=== PATIENT | female | born 1995 | race Caucasian/White ===

== ENCOUNTER 2018-02-25 08:05 | Observation (INO) | payer OTHER ==
[~2018-02-25] VITALS: Ht 167.6 cm; Wt 83.9 kg
[~2018-02-25 08:05] MED LIST: ACE3 PO; ACET-3017 PO; ALB18R INH; ALB6.7R INH; AMO400L PO; AMOX500T10 PO; HYDEL PO; HYDR-3072 PO; HYDR-385 PO; HYDR25VI IM; IBUP800T37 PO; IMPLANON IM; LOR5/325 PO; MYLL PO; NIFE20CA8 PO; NITR-105 PO; NORG1TAB74 PO; ONDA4TAB PO; PANT40TA13 PO; PRE20 PO; PREN-123 PO; PREN-127 PO; PROM-110 PO; PROM25S PR; RAN150 PO; RANI-366 PO; SERT-1 PO; SERT-173; SERT-182 PO; SUC1; SULF-120 PO; TRAZ-133 PO; [UNRECOGNIZED DRUG - CODE]; [UNRECOGNIZED DRUG - CODE] PO; [UNRECOGNIZED DRUG - OTHER] PO
[2018-02-25] MEDS ORDERED: LR(*) 1000 ML BAG 1,000 ML IV PRN (08:32)
[2018-02-25] MEDS ORDERED: DLR(*) 1000 ML BAG 1,000 ML IV PRN (08:32)
[2018-02-25] MEDS ORDERED: ONDANSETRON 4 MG/2 ML VIAL IVP PRN (08:35)
[2018-02-25] MEDS ORDERED: METOCLOPRAMIDE 10 MG/2 ML SDV IVP PRN (08:35)
[2018-02-25 08:37] VITALS: BP 114/55; Ht 167.6 cm; Wt 83.9 kg
[2018-02-25] MEDS ORDERED: ACET-1966 PO (08:37)
[2018-02-25] MEDS ORDERED: PNV1COMB5 (08:37)
[2018-02-25 09:20] LABS: PLATELET COUNT, AUTOMATED 183 K/uL (150-450)
[2018-02-25] MEDS ORDERED: ONDA4TAB97 PO (12:43)
--- NOTE | 2018-02-25 12:53 | History & Physical ---
History of Present Illness Age of Patient: 23 Chief Complaint nausea History of Present Illness The patient is a 23 year old 3 para 2 admitted at 20 5/7 weeks estimated gestational age with an estimated date of delivery 06/29/18 . Patient is admitted with complaint of nausea vomiting diarrhea. No vaginal bleeding. Good movement and occasional contractions. She was evaluated for active labor. She had an uncomplicated course. Her record was reviewed. History Allergies: Coded Allergies: nicotine (Unverified Allergy, Intermediate, NAUSEA/VOMITING, 09/24/17) Social History: No T/E/D. Med Rec Home Meds Active Scripts Ondansetron Hcl (ZOFRAN) 4 Mg Tablet, 1 TAB PO Q6H Y for NAUSEA/VOMITING, #20 TAB 1 Refill Prov:INDU OLIVARES MD 02/25/18 Reported Medications Acetaminophen (TYLENOL) 325 Mg Tablet, 325 MG PO, TAB 02/25/18 Pnv #116/Iron Fumarate/Fa/Dha (EXPECTA COMBO PACK) 1 Each Combo..pkg 02/25/18 Discontinued Scripts Promethazine Hcl (PROMETHAZINE HCL) 25 Mg Tablet, 25 MG PO Q8H Y for NAUSEA/ VOMITING, #20 TAB 0 Refills Prov:MERLE PORTILLO MD 09/24/17 Review of Systems Constitutional: No Fever, No Weight Loss Neurological: No Syncope, No Confusion Eyes: No Vision Change, No Loss of Vision ENT: No Hearing Loss, No Sinus Congestion Cardiovascular: No Chest Pain, No Palpitations Respiratory: No Shortness of Breath Gastrointestinal: Nausea, Vomiting, Diarrhea, No Melena Genitourinary: No Dysuria, No Hematuria Musculoskeletal: No Pain, No Sprain Psychiatric: No Depression, No Anxiety Exam General Exam Vital Signs Vital Signs Date Time Temp Pulse Resp B/P (MAP) Pulse Ox O2 Delivery O2 Flow Rate FiO2 02/25/18 08:37 98.3 85 16 114/55 (74) 95 Room Air General Apperance: Alert/Awake/No Acute Distress Eyes: Normal Extraocular Movement & Vison ENT: Moist Mucous Membranes Cardiovascular: Regular Rate and Rhythm Respiratory: Clear to Auscultation Abdomen: Gravid - Non-Tender Extremities: Edema Integumentary: Skin Intact without Lesions or Rash Psychological: Alert & Oriented X3, Appropriate Mood & Affect Medical Decision Making Data Points Result Diagram: 02/25/18 0915 Assessment and Plan Problems: (1) Nausea and vomiting in Assessment & Plan: given iv hydration and zofran and symptoms resolved will discharge with zofran Copies to: INDU OLIVARES MD, JOHN MD Feb 25, 2018 12:53
== END 2018-02-25 12:53 | disposition home or self-care (01) ==
LOC: OB 08:05
PROVIDERS: ADMIT Obstetrics & Gynecology; ATTEND Obstetrics & Gynecology
DX: O21.2 Late vomiting of pregnancy (principal); Z3A.20 20 weeks gestation of pregnancy
CPT/HCPCS: 36415; 81001; 85025; G0378; G0379; J2405; J7120

== ENCOUNTER 2018-06-01 19:35 | Outpatient (CLI) | payer OTHER ==
[~2018-06-01] VITALS: Ht 168.3 cm; Wt 86.2 kg
[~2018-06-01 19:35] MED LIST changes: +ACET-1966 PO; +ONDA4TAB97 PO; +PNV1COMB5
[2018-06-01] MEDS ORDERED: LR(*) 1000 ML BAG 1,000 ML IV PRN (19:40)
[2018-06-01 19:56] VITALS: BP 125/64; Ht 168.3 cm; Wt 86.2 kg
[2018-06-01] MEDS ORDERED: FAMO1TAB59 PO (19:56)
[2018-06-01] MEDS ORDERED: ESCI20TA38 PO (19:56)
[2018-06-01] MEDS ORDERED: FAMOTIDINE(*) 20MG/50ML PREMIX 50 ML IVPB ONE (20:15)
[2018-06-01] MEDS ORDERED: ONDANSETRON 4 MG/2 ML VIAL ONE (20:29)
[2018-06-01] MEDS ORDERED: ONDANSETRON 4 MG/2 ML VIAL IVP PRN (20:30)
[2018-06-01] MEDS ORDERED: FAMOTIDINE(*) 20MG/50ML PREMIX 50 ML IVPB PRN (20:30)
[2018-06-01] MEDS: LR(*) 1000 ML BAG 1,000 ML IV PRN ×2 (20:42→22:25)
[2018-06-01] MEDS ORDERED: cefTRIAXone 1 GM VIAL IVP ONE (21:50)
== END 2018-06-01 22:09 | disposition home or self-care (01) ==
LOC: L&D 19:35 → OB 19:35 → UNDOADMOB 19:35 → OB 19:35 → L&D 22:09 → UNDODISOB 22:09 → EDSTATUS 06-02 10:35
PROVIDERS: ATTEND Student in an Organized Health Care Education/Training Program
DX: O47.03 False labor before 37 completed weeks of gestation, third trimester (principal); O36.8130 Decreased fetal movements, third trimester, not applicable or unspecified; Z3A.35 35 weeks gestation of pregnancy
CPT/HCPCS: 81001; 87088; 99213; J0696; J2405; J3490; J7120; G0378; G0379

== ENCOUNTER 2018-06-05 20:31 | Outpatient (CLI) | payer OTHER ==
[~2018-06-05 20:31] MED LIST changes: +ESCI20TA38 PO; +FAMO1TAB59 PO
[2018-06-05 21:20] VITALS: BP_SYST 129; BP_DIAS 60; BP_DIAS 85
[2018-06-05] MEDS ORDERED: LR(*) 1000 ML BAG 1,000 ML IV PRN (21:53)
[2018-06-05] MEDS ORDERED: APAP/HYDROCODONE 325/5 TAB PO ONE (21:55)
[2018-06-06] MEDS ORDERED: NIFEdipine 10 MG CAP PO SCH
== END 2018-06-06 01:42 | disposition home or self-care (01) ==
LOC: UNDOADMIN 20:31 → OB 20:31 → L&D 20:31 → OB 20:31 → UNDODISIN 06-06 01:42 → L&D 06-06 01:42 → EDSTATUS 06-08 15:31
PROVIDERS: ATTEND Obstetrics & Gynecology
DX: O47.03 False labor before 37 completed weeks of gestation, third trimester (principal); Z3A.36 36 weeks gestation of pregnancy
CPT/HCPCS: 59025; 81001; 99213; J7120

== ENCOUNTER 2018-06-08 09:03 | Outpatient (CLI) | payer OTHER ==
[~2018-06-08] VITALS: Ht 168.3 cm; Wt 85.3 kg
[2018-06-08 09:39] VITALS: BP 114/71; BMI 30.1
[2018-06-08] MEDS ORDERED: PROMETHAZINE 25 MG/ML 1 ML AMP IM ONE (10:00)
[2018-06-08] MEDS ORDERED: LR(*) 1000 ML BAG 1,000 ML IV PRN ×2 (10:00→14:00)
[2018-06-08] MEDS ORDERED: MEPERIDINE 50 MG/ML SYR IM ONE (10:00)
[2018-06-08] MEDS ORDERED: LIDOCAINE/SOD BICARB 8.4% SYR ONE (10:03)
[2018-06-08] MEDS ORDERED: fentaNYL CITR 100 MCG/2 ML AMP IM ONE (10:20)
[2018-06-08] MEDS ORDERED: NITR-105 PO (12:10)
[2018-06-12 21:28] VITALS: Ht 168.3 cm; Wt 85.3 kg
== END 2018-06-08 14:32 | disposition home or self-care (01) ==
LOC: L&D 09:03 → OB 09:03 → UNDOADMIN 09:03 → UNDODISIN 14:32 → L&D 14:32 → EDSTATUS 06-20 08:35
PROVIDERS: ATTEND Obstetrics & Gynecology
DX: O47.03 False labor before 37 completed weeks of gestation, third trimester (principal); Z3A.36 36 weeks gestation of pregnancy
CPT/HCPCS: 99213; J2550; J3010; 59025

== ENCOUNTER 2018-06-11 21:46 | Observation (INO) | payer OTHER ==
[~2018-06-11] VITALS: Ht 167.6 cm; Wt 85.3 kg
[2018-06-11] MEDS ORDERED: OXYTOCIN 30 UNIT/D5LR 500 ML 500 ML IV PRN (21:51)
[2018-06-11] MEDS ORDERED: LR(*) 1000 ML BAG 1,000 ML IV SCH (21:51)
[2018-06-11] MEDS ORDERED: FAMOTIDINE(*) 20MG/50ML PREMIX 50 ML IVPB PRN (21:51)
[2018-06-11] MEDS ORDERED: DLR(*) 1000 ML BAG 1,000 ML IV SCH (21:51)
[2018-06-11] MEDS ORDERED: LIDOCAINE 1% LOCAL 300 MG/30ML INJ PRN (21:55)
[2018-06-11] MEDS ORDERED: METOCLOPRAMIDE 10 MG/2 ML SDV IVP PRN (21:55)
[2018-06-11] MEDS ORDERED: cefOXitin/DEX(*) 2GM/50ML PREM 50 ML IVPB PRN (21:55)
[2018-06-11] MEDS ORDERED: fentaNYL CITR 100 MCG/2 ML AMP IVP PRN (21:55)
[2018-06-11] MEDS ORDERED: LIDOCAINE/SOD BICARB 8.4% SYR SC PRN (21:55)
[2018-06-12 02:51] VITALS: BP 122/66; Ht 167.6 cm; Wt 85.3 kg
== END 2018-06-12 02:09 | disposition home or self-care (01) ==
LOC: OB 21:46 → INTOOBSV 21:46
PROVIDERS: ADMIT Student in an Organized Health Care Education/Training Program; ATTEND Student in an Organized Health Care Education/Training Program
DX: O47.1 False labor at or after 37 completed weeks of gestation (principal); Z3A.39 39 weeks gestation of pregnancy
CPT/HCPCS: 59025; G0378; G0379

== ENCOUNTER 2018-06-12 21:11 | Outpatient (CLI) | payer OTHER ==
[~2018-06-12] VITALS: Ht 167.6 cm; Wt 85.3 kg
[2018-06-12] MEDS ORDERED: LR(*) 1000 ML BAG 1,000 ML IV SCH (21:14)
[2018-06-12] MEDS ORDERED: FAMOTIDINE(*) 20MG/50ML PREMIX 50 ML IVPB PRN (21:14)
[2018-06-12] MEDS ORDERED: OXYTOCIN 30 UNIT/D5LR 500 ML 500 ML IV PRN (21:14)
[2018-06-12] MEDS ORDERED: LIDOCAINE 1% LOCAL 300 MG/30ML INJ PRN (21:15)
[2018-06-12] MEDS ORDERED: FLUSH 10 ML SYR IVP PRN (21:15)
[2018-06-12] MEDS ORDERED: LIDOCAINE/SOD BICARB 8.4% SYR SC PRN (21:15)
[2018-06-12] MEDS ORDERED: fentaNYL CITR 100 MCG/2 ML AMP IVP PRN (21:15)
[2018-06-12] MEDS ORDERED: METOCLOPRAMIDE 10 MG/2 ML SDV IVP PRN (21:15)
[2018-06-12 21:28] VITALS: BP 128/58; Ht 167.6 cm; Wt 85.3 kg
[2018-06-12] MEDS ORDERED: ACETAMINOPHEN 500 MG TAB PO ONE (21:55)
[2018-06-12] MEDS ORDERED: APAP/HYDROCODONE 325/5 TAB PO ONE (23:35)
[2018-06-12] MEDS ORDERED: PROMETHAZINE 25 MG/ML 1 ML AMP IM PRN (23:35)
== END 2018-06-13 00:41 | disposition home or self-care (01) ==
LOC: OB 21:11 → L&D 21:11 → OB 21:11 → UNDOADMOB 21:11 → L&D 06-13 00:41 → UNDODISOB 06-13 00:41 → EDSTATUS 06-16 08:39
PROVIDERS: ATTEND Student in an Organized Health Care Education/Training Program
DX: O47.1 False labor at or after 37 completed weeks of gestation (principal); Z3A.38 38 weeks gestation of pregnancy
CPT/HCPCS: 99213; G0378; G0379

== ENCOUNTER 2018-06-17 23:39 | Inpatient (IN) | payer OTHER ==
[~2018-06-17] VITALS: Ht 167.6 cm; Wt 85.3 kg
[2018-06-18 00:30] VITALS: BP 123/72; Ht 167.6 cm; Wt 85.3 kg
[2018-06-18] MEDS ORDERED: FAMOTIDINE(*) 20MG/50ML PREMIX 50 ML IVPB PRN (01:29)
[2018-06-18] MEDS ORDERED: OXYTOCIN 30 UNIT/D5LR 500 ML 500 ML IV PRN ×2 (01:29→07:29)
[2018-06-18] MEDS ORDERED: cefOXitin/DEX(*) 2GM/50ML PREM 50 ML IVPB PRN (01:30)
[2018-06-18] MEDS ORDERED: METOCLOPRAMIDE 10 MG/2 ML SDV IVP PRN (01:30)
[2018-06-18] MEDS ORDERED: LIDOCAINE/SOD BICARB 8.4% SYR SC PRN (01:30)
[2018-06-18] MEDS ORDERED: fentaNYL CITR 100 MCG/2 ML AMP IVP PRN (01:30)
[2018-06-18] MEDS ORDERED: LIDOCAINE 1% LOCAL 300 MG/30ML INJ PRN (01:30)
[2018-06-18] MEDS ORDERED: FLUSH 10 ML SYR IVP PRN (01:30)
[2018-06-18] MEDS: LR(*) 1000 ML BAG 1,000 ML IV SCH ×3 (02:02→21:29)
[2018-06-18 02:07] LABS: PLATELET COUNT, AUTOMATED 152 K/uL (150-450)
[2018-06-18] MEDS ORDERED: ONDANSETRON 4 MG/2 ML VIAL IVP PRN (02:40)
[2018-06-18] MEDS ORDERED: BUPIVACAINE 0.25% MPF INJ EPI PRN (02:40)
[2018-06-18] MEDS ORDERED: BUPIVACAINE 0.5% INJ 30ML VIAL EPI PRN (02:40)
[2018-06-18] MEDS ORDERED: LIDO/EPI 2% MPF 1:200,000 20ML EPI PRN (02:40)
[2018-06-18] MEDS ORDERED: LIDOCAINE/PF 2% 200MG/10ML AMP 200 MG/10 ML AMPUL EPI PRN (02:40)
[2018-06-18] MEDS ORDERED: fentaNYL CITR 100 MCG/2 ML AMP IT PRN (02:40)
[2018-06-18] MEDS ORDERED: FAMOTIDINE 20 MG/50 ML PREMIX IVPB PRN (02:40)
[2018-06-18] MEDS ORDERED: FENTANYL/ROPIVACAINE 100 ML BAG EPI PRN (02:40)
[2018-06-18] MEDS ORDERED: EPIDURAL KEYS XX PRN (02:40)
--- NOTE | 2018-06-18 04:11 | Anesthesia OB Pre-Anes Eval ---
History of Present Illness Anesthesia Start Date: Jun 18, 2018 Anesthesia Start Time: 02:55 OB Anesthesia Diagnosis: spontaneous ROM Complications: None known EDC: Jul 02, 2018 : 3 Para: 2 Pain Ratin Result Diagram: 06/18/18 0145 Height (Inches): 66 Weight (Pounds): 188 BMI Calculated: 30.34 Past Medical History Medical History: no pertinent history Surgical History: tonsillectomy Previous Anesthesia: general, epidural Attended Childbirth Classes?: No Hx Anesthesia Reactions: No Hx Family Anesthesia Reaction: No Home Meds Reported Medications Nitrofurantoin Monohyd/M-Cryst (MACROBID 100 MG CAPSULE) 100 Mg Capsule, 100 MG PO BID, CAPSULE 06/08/18 Escitalopram Oxalate (LEXAPRO) 20 Mg Tablet, 10 MG PO QDAY, TAB 06/01/18 Famotidine/Ca Carb/Mag Hydrox (TUMS DUAL ACTION TABLET CHEW) 1 Each Tab.chew, 1 EACH PO, TAB.CHEW 06/01/18 Acetaminophen (TYLENOL) 325 Mg Tablet, 325 MG PO, TAB 02/25/18 Pnv #116/Iron Fumarate/Fa/Dha (EXPECTA COMBO PACK) 1 Each Combo..pkg 02/25/18 Allergies: Coded Allergies: nicotine (Unverified Allergy, Intermediate, NAUSEA/VOMITING, 09/24/17) Anesthesia OB ROS Neurological: No migraines/headaches, No seizures, No neuropathy Eyes ROS: contacts out Contacts Statement: Patient instructed to notify anesthesia if she places contacts in. States she does not have any here with her. ENT: Denies Tooth caps, Denies Loose teeth, Denies Chipped teeth, Denies Dentures, Denies Bridges, Denies Retainers, Denies Veneers, Denies Implants, Tongue ring (removed and placed in cup), Denies Other Pulmonary: asthma (no problems in last 5 years) Airway Class: ll Cardiovascular ROS: No edema, No arrhythmia GI ROS: clear liquids Last Solids Date: Jun 17, 2018 Last Solids Time: 20:00 ROS: No Herpes, No STD(s), No Liver Disease, No Renal Disease Endocrine ROS: No diabetes, No gestational diabetes, No thyroid disorder Musculoskeletal ROS: No low back pain, No low back injury, No scoliosis ASA Classification: 2 Assessment and Plan Assessment Past Medical, Surgical, Family and Obstetric Histories reviewed. Please see ACOG chart. Reviewed last epidurals in [facility] records. Epidural anesthesia risks, complications and benefits explained to patient's satisfaction for labor and vaginal delivery and/or section. General anesthesia risks and benefits explained to patient's satisfaction. Questions invited, none asked. APOLINAR WESTBROOK CRNA Jun 18, 2018 04:11
--- NOTE | 2018-06-18 04:15 | Procedure Note ---
Anesthetic Placement Note Anesthesia Plan: CSE Permit for Anesthesia Signed: Yes Anesthesia Technique: Patient Sitting Anesthesia Prep: Chlorhexidine Interspace: L 3-4 Local Anesthetic: 1% Lidocaine, 25 Gauge Needle Amount Local - cc's: 2 Anesthesia Needle: 17g Touhy/Schliff Anesthesia Attempts: 1 Loss of Resistance: Air Depth of VINCE (cm): 6 Epidural Needle Placement: No CSF, No Blood, No Parasthesia Intrathecal Needle: 27 Gauge Pencan Cerebral Spinal Fluid: No Catheter Insertion (cm): 10 Catheter Type: Gleason - Spring Wound Epidural Dressing: Tegaderm, Tape, Adhesive [place]dealing Anesthesia Tray: Lot Number ([id number]), Expiration Date (2019-07-16), Reference Number ([id number]) Anesthesia Medications: Epidural Test Dose: 1.5 Lido/Epi (1:200,000), Dose - mL (3), Time (0316), Negative Epidural Loading Dose: 0.2% Ropivicaine, With Fentanyl 2mcg/ml, Dose - ml (8), Time (0321) Epidural Infusion: 0.2% Ropivicaine, With Fentanyl 2mcg/ml, Start Time: (0322) Epidural Pump Setting: Bolus Dose - mL (5), Lockout - Minutes (20), Maintenance Rate - mL/hr (6), Maximum per Hour - mL (21) Complications: None Comment: Pt. became comfortable within 5-7 minutes of dosing epidural. Smile on face. Encouraged to sleep. States she does not feel contractions. APOLINAR WESTBROOK CRNA Jun 18, 2018 04:15
[2018-06-18] MEDS ORDERED: METHYLERGONOVINE MAL 0.2MG/ML ONE ×2 (06:02→06:50)
[2018-06-18] MEDS ORDERED: CARBOPROST TROMETHAM 250MCG/ML IM ONLY ONE (06:02)
[2018-06-18] MEDS ORDERED: DIPHTH/TETANUS/ACEL. PERTUSSIS IM ONE (06:25)
[2018-06-18] MEDS ORDERED: MAGNESIUM HYDROXIDE* 30ML UDCP PO PRN (06:25)
[2018-06-18] MEDS ORDERED: MEASLES,MUMP,RUBELLA VAC 0.5ML SC ONE (06:25)
[2018-06-18] MEDS ORDERED: LANOLIN OINT 7 GM TUBE TP PRN (06:25)
[2018-06-18] MEDS ORDERED: INFLUENZA VIRUS VAC 0.5 ML SYR IM ONLY ONE (06:25)
[2018-06-18] MEDS ORDERED: BENZOCAINE 20% 60 ML BTL TP PRN (06:25)
[2018-06-18] MEDS ORDERED: GLYCERIN/WITCH HAZEL LEAF 1 PK TOP PRN (06:25)
[2018-06-18] MEDS ORDERED: APAP/HYDROCODONE 325/5 TAB PO PRN (06:25)
[2018-06-18] MEDS ORDERED: ACETAMINOPHEN 325 MG TAB PO PRN (06:25)
[2018-06-18] MEDS ORDERED: HYDROCORTISONE 2.5% CR 30GM TB PR PRN (06:25)
--- NOTE | 2018-06-18 06:25 | Anesthesia Progress Note ---
Progress/Maintenance Anesthesia Note Date: Jun 18, 2018 Anesthesia Note Time: 06:15 Pain Intensity: 0 Pump: Off Sensory Level: T-12 Motor Level: Bending Knees-Bilateral Dilatation: 10 Position: Semi-Fowlers Assessment and Plan Assessment No further medication was given. Pt. was able to push well and excellent tolerance of delivery. Empty syringe attached to epidural catheter and RN agrees to remove with ambulation in 1-2 hrs. Patient instructed the first ambulation is to be with help of nursing staff. Instructed to preform deep knee bends at bedside before walking. Anesthesia Stop Day: Jun 18, 2018 Anesthesia Stop Time: 06:15 APOLINAR WESTBROOK CRNA Jun 18, 2018 06:25
--- NOTE | 2018-06-18 06:35 | History & Physical ---
History of Present Illness Age of Patient: 23 : 3 Para or TPAL: 2 EDC per LMP: Jul 02, 2018 EDC per U/S: Jul 03, 2018 Estimated Gestational Age: 38.0 Chief Complaint Water Broke History of Present Illness Pt is a 23 y/o @ 38-0/7 weeks gestation who presents to L&D with a complaint of my Water broke. Pt reports that she felt a large gush of fluid around 2200 last night. Reports clear fluid. No bleeding. Good movement. History Patient's Blood Type: O Positive Rubella Status: Immune Group B Strep Screen: Negative Obstetrical History: X 2 History of Chlamydia Past Medical History: Depression Asthma Hayfever Allergies: Coded Allergies: nicotine (Unverified Allergy, Intermediate, NAUSEA/VOMITING, 09/24/17) Social History: No T/E/D. Med Rec Home Meds Reported Medications Nitrofurantoin Monohyd/M-Cryst (MACROBID 100 MG CAPSULE) 100 Mg Capsule, 100 MG PO BID, CAPSULE 06/08/18 Escitalopram Oxalate (LEXAPRO) 20 Mg Tablet, 10 MG PO QDAY, TAB 06/01/18 Famotidine/Ca Carb/Mag Hydrox (TUMS DUAL ACTION TABLET CHEW) 1 Each Tab.chew, 1 EACH PO, TAB.CHEW 06/01/18 Acetaminophen (TYLENOL) 325 Mg Tablet, 325 MG PO, TAB 02/25/18 Pnv #116/Iron Fumarate/Fa/Dha (EXPECTA COMBO PACK) 1 Each Combo..pkg 02/25/18 Review of Systems All Systems Reviewed/Normal: Yes, Except as Noted Constitutional: No Fever, No Weight Loss, No Weight Gain, No Chills, No Night Sweats, No Other Neurological: No Syncope, No Confusion, No Weakness, No Dizziness, No Slurred Speech, No Other Eyes: No Vision Change, No Loss of Vision, No Photophobia, No Other ENT: No Hearing Loss, No Sinus Congestion, No Sore Throat, No Ear Ache, No Tinnitus, No Other Cardiovascular: No Chest Pain, No Palpitations, No Orthostatic Hypotension, No Other Respiratory: No Shortness of Breath, No Cough, No Wheezing, No Other Gastrointestinal: No Nausea, No Vomiting, No Diarrhea, No Dysphagia, No Constipation, No Early Satiety, No Hematemesis, No Hematochezia, No Melena, No Abdominal Pain, No Other Genitourinary: No Dysuria, No Hematuria, No Urinary Incontinence, No Other Musculoskeletal: No Pain, No Sprain, No Strain, No Impaired Mobility, No Other Psychiatric: No Depression, No Anxiety, No Other Exam General Exam Vital Signs Vital Signs Date Time Temp Pulse Resp B/P (MAP) Pulse Ox O2 Delivery O2 Flow Rate FiO2 06/18/18 00:30 98.0 67 16 123/72 (89) 94 Room Air General Apperance: Alert/Awake/No Acute Distress Neuro: No Gross deficits Eyes: Normal Extraocular Movement & Vison ENT: Normal Cardiovascular: Regular Rate and Rhythm Respiratory: No Respiratory Distress Abdomen: Soft, Non-Tender, Non-Distended, Gravid - Non-Tender : Normal Musculoskeletal: No Weakness/Pain Psychological: Alert & Oriented X3, Appropriate Mood & Affect Vaginal Discharge/Fluid?: Bloody Show, Clear Fluid (Amnisure positive) Cervical Dialation: 10 Cervical Effacement (%): 100 Cervical Consistency: Soft Cervical Position: Anterior Station: +2 Presentation: Vertex Uterine Contractions(Q min): 2 Uterine Contraction Strength: Mild UC Resting Tone: Soft Fetus Feeling Movement?: Yes Estimated Weight(grams): 2800 Heart Tone Variabilty: Moderate FHT Accelerations: 15X15 FHT Decelerations: Variable FHT Category: II Medical Decision Making Data Points Result Diagram: 06/18/18 0145 Pre-Admit Course Medical Record Review: Yes VTE Prophylasis: Adult Deep Vein Thrombosis/Pulmonary: No Assessment and 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 Pt transition from PROM to Labor spontaneously with out any oxytocin. SYLVESTER ORDAZ DO Jun 18, 2018 06:35
--- NOTE | 2018-06-18 06:49 | OB Delivery Note ---
Delivery Note Vaginal Delivery Type: Spont. Vaginal Delivery Delivery Date: Jun 18, 2018 Delivery Time: 06:04 Estimated Gestational Age(wks): 38.0 Length of Labor Stage I (hrs): 7.5 Length of Labor Stage II (hrs): 0.25 Labor Stage III (minutes): 6 Delivery Anesthesia: Epidural Sex: Male Infant Weight (gms): 2586 Apgars: 1 Minute (9), 5 Minute (9) Estimated Blood Loss: 400 Delivery Complications: Nuchal Cord (X1) Art Therapy Specialist in Attendence: SYLVESTER Dillon DO Jun 18, 2018 06:48
--- NOTE | 2018-06-18 07:35 | DELIVERY NOTE ---
DELIVERY DATE: June 18, 2018 SURGEON: Jonas Holland DO ANESTHESIA: Epidural PREOPERATIVE DIAGNOSIS 1. 23-year-old 3, para 2 at 38 and 0/7 weeks gestation. 2. Spontaneous rupture of membranes. POSTOPERATIVE DIAGNOSIS 1. 23-year-old 3, para 2 at 38 and 0/7 weeks gestation. 2. Spontaneous rupture of membranes. 3. Delivered. 4. growth restriction. PROCEDURE Spontaneous vaginal delivery with intact perineum. FINDINGS Live-born male at 0604 with Apgars of 9 and 9, weighing 2586 grams, 5 pounds, 11 ounces, three-vessel cord, over intact perineum. There were no signs or evidence of abruption on the placenta. ESTIMATED BLOOD LOSS 400 mL. PATHOLOGY None. COMPLICATIONS Nuchal cord x 1. CONDITION Stable x 2. Mother and infant to remain in LDRP. COUNTS Correct for all needles, laps, sponges, and instruments. LABOR SUMMARY The patient is a 23-year-old 3, para 2, at 38 and 0/7 weeks gestation who presents to Labor and Delivery with a chief complaint of loss of amniotic fluid, possible water breaking. The patient was found to be grossly rupture with a positive AmniSure. She was admitted to Labor and Delivery and allowed to transition. She did transition spontaneously from no contractions to spontaneous labor. She made quick change. She did receive an Epidural for pain control. With the Epidural she eventually made it to complete. Labor nurses throughout the course did note some increased bleeding, but the heart rate remained reassuring. It was noted that there were only 5 late decelerations and these were alleviated with intrauterine resuscitative measures such as maternal changes, IV fluid bolus, and oxygen. The patient continued to labor, eventually got to complete and +2 station. At this point the delivery team was called and assembled. DELIVERY SUMMARY The patient was placed in the dorsal lithotomy position. She was prepped and draped in the usual sterile manner. Upon maternal pushing the 's head delivered in a controlled manner followed by the anterior shoulder with gentle downward motion, the posterior shoulder with gentle upward motion with the remainder of the infant's body delivering spontaneously. Mouth and nose were bulb suctioned. A vigorous male infant was then placed on the maternal abdomen , where he was attended to by the nursing staff. Cord blood gas was obtained. The placenta delivered spontaneously with gentle cord traction. The placenta was inspected post delivery and there were no obvious signs of abruption or any retroplacental hematomas. At this Oxytocin was infused to help with uterine tone. Uterus was massaged and firm. Upon inspection of the perineum, vagina, cervix, and labia, it was noted there were no lacerations. At this point, the patient was cleaned, the labor bed was reassembled and the mother and infant were allowed to continue to macias. HÉCTOR
[2018-06-18] MEDS ORDERED: MISOPROSTOL 200 MCG TAB ONE (08:13)
[2018-06-18] MEDS: MISOPROSTOL 200 MCG TAB PO SCH ×3 (08:13→21:32)
[2018-06-18 08:30] VITALS: BP 106/59
[2018-06-18 09:56] VITALS: BP 119/60
[2018-06-18] MEDS: DOCUSATE CALCIUM 240 MG CAP PO SCH ×2 (10:01→21:32)
[2018-06-18] MEDS: IBUPROFEN 800 MG TAB PO SCH ×2 (10:01→17:44)
[2018-06-18 11:10] VITALS: BP 113/57
[2018-06-18] MEDS ORDERED: IBUP800T37 PO (14:00)
[2018-06-18] MEDS ORDERED: LOR5/325 PO (14:00)
--- NOTE | 2018-06-18 14:02 | OB/GYN Discharge Summary ---
Discharge Summary Reason for Hosp/Final Diag: (1) 38 weeks gestation of (2) Spontaneous rupture of amniotic membranes Hospital Course & Plan: Pt presented with a complaint of loss of amniotic fluid. She was noted to be ruptured with amnisure. She started to contract spontaneously and quickly went to complete. Pt delivered with out any difficulty. During her labor course she did have some bleeding that was concerning for abruption but didn't appear to have any retroplacental hemorrhage upon inspection. Pt met post goals and was discharged home with on PPD #1. Lates Vital Signs Vital Signs Date Time Temp Pulse Resp B/P (MAP) Pulse Ox O2 Delivery O2 Flow Rate FiO2 06/18/18 13:32 97.4 06/18/18 11:42 95 06/18/18 11:10 66 16 113/57 (75) Room Air Weight (Pounds): 188 Result Diagram: 06/18/18 0145 Condition: Improved Discharge: Home Home Meds Active Scripts Ibuprofen (IBUPROFEN) 800 Mg Tablet, 800 MG PO Q8H, #24 TAB 0 Refills Prov:SYLVESTER ORDAZ DO 06/18/18 Hydrocodone Bit/Acetaminophen (HYDROCODON-ACETAMINOPHEN 5-325) 1 Each Tablet, 1- 2 EACH PO Q4H Y for PAIN, #20 TAB 0 Refills Prov:SYLVESTER ORDAZ DO 06/18/18 Reported Medications Nitrofurantoin Monohyd/M-Cryst (MACROBID 100 MG CAPSULE) 100 Mg Capsule, 100 MG PO BID, CAPSULE 06/08/18 Escitalopram Oxalate (LEXAPRO) 20 Mg Tablet, 10 MG PO QDAY, TAB 06/01/18 Famotidine/Ca Carb/Mag Hydrox (TUMS DUAL ACTION TABLET CHEW) 1 Each Tab.chew, 1 EACH PO, TAB.CHEW 06/01/18 Acetaminophen (TYLENOL) 325 Mg Tablet, 325 MG PO, TAB 02/25/18 Pnv #116/Iron Fumarate/Fa/Dha (EXPECTA COMBO PACK) 1 Each Combo..pkg 02/25/18 [facility] [phone], Dr. Denise [phone] Follow up in: 6 wks PP or PO Discharge Diet: As Tolerates, Resume Prior Admit Diet Discharge Activity: As Tolerates, Pelvic Rest SYLVESTER ORDAZ DO Jun 18, 2018 14:02
[2018-06-18 14:58] VITALS: BP 123/66
[2018-06-18 20:34] VITALS: BP 113/68
[2018-06-19] MEDS: IBUPROFEN 800 MG TAB PO SCH ×2 (01:00→08:33)
[2018-06-19] MEDS: MISOPROSTOL 200 MCG TAB PO SCH ×2 (02:26→08:33)
[2018-06-19 04:00] VITALS: BP 110/66
[2018-06-19] MEDS: LR(*) 1000 ML BAG 1,000 ML IV SCH (07:29)
--- NOTE | 2018-06-19 07:39 | OB/GYN Progress Note ---
OB Subjective Progress Notes Subjective Doing good this morning. reports pain controlled with po pain medication. Tolerating regular diet. Voiding with out any difficulty. Bleeding appropriate. Ambulatory. GI: NEG Nausea, NEG Vomiting, NEG Flatus, NEG Bowel Movement : Voiding Well, Vaginal Bleeding Pain: Mild, Tolerating PO Pain Meds Neurological: No Headache, No Other Eyes: No Visual Disturbances OB Objective Physical Exam Vital Signs Date Time Temp Pulse Resp B/P (MAP) Pulse Ox O2 Delivery O2 Flow Rate FiO2 06/19/18 04:00 97.9 74 16 110/66 (81) 95 Room Air General Appearance: Alert/Awake/No Acute Distress Neurological: No Gross deficits Eyes: Normal Extraocular Movement & Vison ENT: Normal Neck: No Masses Cardiovascular: Normal Rhythm & Peripheral Pulses, Regular Rate and Rhythm Respiratory: No Respiratory Distress, Clear to Auscultation Abdomen: Soft, Non-Tender, Non-Distended : Normal Musculoskeletal: No Weakness/Pain Extremities: No Cyanosis,Clubbing or Edema Integumentary: Skin Intact without Lesions or Rash Psychological: Alert & Oriented X3, Appropriate Mood & Affect Result Diagram: 06/19/18 0604 Assessment and Plan 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 Follow up with [facility] in 6 weeks. (2) Spontaneous rupture of amniotic membranes SYLVESTER ORDAZ DO Jun 19, 2018 07:39
[2018-06-19] MEDS: DOCUSATE CALCIUM 240 MG CAP PO SCH (08:33)
[2018-06-19 08:36] VITALS: BP 121/66
--- NOTE | 2018-06-19 14:23 | Anesthesia Post Eval Note ---
Anesthesia Post Eval Note Stabil, afebrile. Pt able to participate in Eval: No Cardiovascular Status: Satisfactory Respiratory Status: Satisfactory Pain Managment: Satisfactory PO Nausea/Vomiting: Satisfactory Temperature Management: Satisfactory Mental Status: Satisfactory Post-Op Hydration Status: Satisfactory, Tolerating PO Well, Voiding w/o Difficulty Anesthesia Type: LEB Anesthesia Tolerance: Pt. was discharged earlier today, no reports of any symptoms of PDPH, no reported complications. ILENE SYED FILAMENT WOUND PARTS FABRICATOR Jun 19, 2018 14:23
== END 2018-06-19 12:00 | disposition home or self-care (01) | DRG 775 ==
LOC: OB 23:39
PROVIDERS: ADMIT Student in an Organized Health Care Education/Training Program; ATTEND Student in an Organized Health Care Education/Training Program
PROC: 10E0XZZ Delivery of Products of Conception, External Approach (ICD-10-PCS; principal; 2018-06-18)
DX: O42.02 Full-term premature rupture of membranes, onset of labor within 24 hours of rupture (principal); O36.5930 Maternal care for other known or suspected poor fetal growth, third trimester, not applicable or unspecified; O76 Abnormality in fetal heart rate and rhythm complicating labor and delivery; O69.81X0 Labor and delivery complicated by cord around neck, without compression, not applicable or unspecified; O99.344 Other mental disorders complicating childbirth; F32.9 Major depressive disorder, single episode, unspecified; Z3A.38 38 weeks gestation of pregnancy; Z37.0 Single live birth
CPT/HCPCS: 36415; 81001; 84112; 85025; 85027; 86850; 86900; 86901; J2210; J2405; J2590; J3010; J7120; S0020